=== PATIENT | male | born 1950 | race Caucasian/White ===

== ENCOUNTER 2016-11-19 11:29 | Observation (INO) | payer MEDICARE, BC ==
[2016-11-19] MEDS ORDERED: Aspirin 81 MG Tab.Chew PO ONE (12:10)
[2016-11-19] MEDS ORDERED: Nitroglycerin 0.4 MG Tab.SL SL ONE (12:10)
--- NOTE | 2016-11-19 16:05 | CR ---
DATE OF SERVICE: 11/19/16 CLINICAL DATA: chest pain AP PORTABLE CHEST: Comparison is made to a prior exam dated 11/06/15. The patient has taken a poor inspiration. The heart size is normal. There is focal eventration of the right hemidiaphragm. The lungs are clear. No pneumothorax. No pleural effusions. No areas of consolidation. The exam is otherwise negative. [id number] [facility]
[2016-11-19 17:52] VITALS: BP 149/82
--- NOTE | 2016-11-19 18:23 | ER ---
HISTORY OF PRESENT ILLNESS: A 66-year-old male who comes in with family members with complaints of chest pain and some abdominal discomfort. The patient tells me that at 5:30 this morning, he was already awake. He was on his way to town for breakfast, when he suddenly had abdominal discomfort in the epigastric area, nausea and vomiting. The vomiting happened only once, but he says it was quite forceful. He does not feel as nauseated anymore, but maybe slight nausea, but just does not feel well. He does have some chest pain along the left sternal border involving the lower chest wall since this happened. The patient currently rates his pain at 5/10. He denies any shortness of breath. He denies any pain radiating into the neck or arms. The patient states his throat feels a little uncomfortable, almost like there is pain at the base of the throat going down the sternum. The patient denies any history of coronary artery disease. He has just finished taking clindamycin for a tick bite. He also takes Pravachol for dyslipidemia, and a baby aspirin once a day. These are the only medications he has been taking. OBJECTIVE: GENERAL APPEARANCE: The patient is awake and alert. He is smiley in nature. VITAL SIGNS: Reviewed. The patient's blood pressure initially was elevated at 169/94, respirations 18, O2 sats 96, pulse 73. He is afebrile. PHYSICAL EXAM: Oral mucous membranes are moist. Tonsils not enlarged or injected. Pharynx not inflamed. NECK: Supple. LUNGS: Clear. CARDIAC: Heart sounds distinct without murmurs. SKIN: Warm and dry. I cannot reproduce any pain with palpation in the epigastric area or sternal borders. INITIAL WORKUP: An EKG is obtained showing no ST elevation. There is a right bundle- branch, unknown if this is new. Otherwise, it is a normal sinus rhythm. PA chest x-ray is unremarkable. Labs include a CBC, which is normal. D-dimer is normal at 143. Comprehensive metabolic panel was unremarkable. Troponin is normal. The patient was given 4 baby aspirin and a nitroglycerin shortly after arriving in the emergency room. The nitroglycerin brought his pain down to 0, and the patient is resting comfortably at this time. DIAGNOSIS: Chest pain with a negative initial cardiac work up. The patient will be admitted to Observation. We would obtain a second troponin on him in 4 hours. A second EKG was obtained, this is unchanged from the first EKG. Negative for ST elevation. CRS/MODL /[id number]
--- NOTE | 2016-11-20 14:28 | DISCH ---
This is a 66-year-old male who was put in for observation through the emergency room after an initial negative workup for chest pain. The patient has been here since noon. Initially, 1 nitroglycerin was given, which resolved his chest pain, and he was given baby aspirin. He has not had any chest pain throughout the afternoon. A second troponin is also negative at 4:30 p.m. At this point, I did discuss the patient's case briefly with Dr. Sarabia. The patient is safe to go home. I will put him on a PPI. I advised the patient to use Prilosec OTC 20 mg 1 or 2 tablets daily a.c. He also will be given the nitroglycerin tablets that were started in the emergency room to take as needed, 1 under the tongue every 5 minutes up to 3 doses if any new chest pain occurs. He will be scheduled for a stress test early next week. If he does develop any new chest pain, he is to call the emergency room for further evaluation as needed over the weekend. The patient and his were comfortable with this treatment plan and have no further questions. CRICKET/WOLFGANG /[id number] MADAY
== END 2016-11-19 17:30 | disposition home or self-care (01) ==
LOC: LB.ED 11:45 → LB.MS 13:03 → UNDOADMOB 13:11
PROVIDERS: ADMIT Physician Assistant; ATTEND Physician Assistant
DX: R07.9 Chest pain, unspecified (principal); E78.5 Hyperlipidemia, unspecified; Z79.82 Long term (current) use of aspirin; Z79.2 Long term (current) use of antibiotics; Z79.899 Other long term (current) drug therapy
CPT/HCPCS: 36415; 71010; 80053; 84484; 85025; 85379; 93005; 99285; A9270; 99235; G0378

== ENCOUNTER 2022-04-15 15:34 | Emergency (ER) | payer MEDICARE, BC ==
[2022-04-19 14:15] VITALS: BP 173/86; PULSE 67
== END 2022-04-19 15:41 | disposition home or self-care (01) ==
LOC: LB.ED 15:34
DX: R55 Syncope and collapse (principal); Z88.0 Allergy status to penicillin; Z79.82 Long term (current) use of aspirin
CPT/HCPCS: 99283

== ENCOUNTER 2022-04-15 15:50 | Emergency (ER) | payer MEDICARE, BC ==
[2022-05-11 10:56] LABS: TROPONIN I HIGH SENSITIVITY 56.9 pg/ml (<=60.4)
== END 2022-04-15 17:10 | disposition home or self-care (01) ==
LOC: LB.ED 15:50
DX: R55 Syncope and collapse (principal); I45.10 Unspecified right bundle-branch block
CPT/HCPCS: 36415; 80048; 83735; 84100; 84484; 85025; 93005; 99284

== ENCOUNTER 2022-04-15 18:50 | Emergency (ER) | payer MEDICARE, BC | END 2022-04-15 21:00 | LOC: LB.ED 18:50 | DX: R55 Syncope and collapse (principal); I45.10 Unspecified right bundle-branch block; I44.0 Atrioventricular block, first degree; Z95.4 Presence of other heart-valve replacement | CPT/HCPCS: 71045; 99285 ==

== ENCOUNTER → 2022-04-19 | Emergency (ER) | payer MEDICARE, BC ==
[2022-04-19 14:27] LABS: ESTIMATED GFR 54 mL/min (>60)
== END | disposition home or self-care (01) ==
LOC: LB.ED 12:59
DX: I10 Essential (primary) hypertension (principal); E78.00 Pure hypercholesterolemia, unspecified; Z88.0 Allergy status to penicillin; Z79.82 Long term (current) use of aspirin; Z79.899 Other long term (current) drug therapy
CPT/HCPCS: 36415; 71045; 80053; 84484; 85025; 93005; 93010; 99283; 99284

== ENCOUNTER 2025-04-23 09:50 | Day surgery (SDC) | payer MEDICARE ==
[2025-04-23] MEDS ORDERED: Propofol 200 MG/20 ML SDV ONE (13:00)
[2025-04-23 13:20] VITALS: BP 141/88; PULSE 60
== END 2025-04-23 13:50 | disposition home or self-care (01) ==
LOC: LB.SDS 09:50
PROVIDERS: ATTEND Surgery
DX: Z12.11 Encounter for screening for malignant neoplasm of colon (principal); D12.5 Benign neoplasm of sigmoid colon; I10 Essential (primary) hypertension; Z80.0 Family history of malignant neoplasm of digestive organs; Z88.0 Allergy status to penicillin; Z79.82 Long term (current) use of aspirin; Z79.899 Other long term (current) drug therapy; Z86.0100 Personal history of colon polyps, unspecified
CPT/HCPCS: J2704; J7030

== ENCOUNTER 2025-06-02 13:28 | Emergency (ER) | payer MEDICARE, BC ==
[2025-06-02 13:38] VITALS: BP 116/65; PULSE 67
[2025-06-02] MEDS ORDERED: Amoxicillin/Clavulanate K 875-125 MG Tab ONE (14:15)
== END 2025-06-02 14:30 | disposition home or self-care (01) ==
LOC: LB.ED 13:28
DX: L03.115 Cellulitis of right lower limb (principal); I10 Essential (primary) hypertension; E78.00 Pure hypercholesterolemia, unspecified; K21.9 Gastro-esophageal reflux disease without esophagitis; M19.90 Unspecified osteoarthritis, unspecified site; Z79.899 Other long term (current) drug therapy; Z88.0 Allergy status to penicillin
CPT/HCPCS: 96372; 99283; A9270; J0696